=== PATIENT | female | born 1955 | race Caucasian/White ===

== ENCOUNTER 2021-09-05 05:40 | Emergency (ER) | payer MEDICARE, OTHER ==
[~2021-09-05] VITALS: Ht 167.6 cm; Wt 50.8 kg
--- NOTE | 2021-09-05 05:45 | NUR ---
DOM 76 FROM HOME FOR EVALUATION OF S/P ASSISTED FALL DURING SYNCOPAL EPISODE. DENIES ANY TRAUMA OR PAIN.PT ALERT AND ORIENTED PLACED ON MONITOR AND PULSE OX, V/S STABLE BREATHING EVEN AND UNLABORED.
--- NOTE | 2021-09-05 06:32 | NUR ---
PATIENT TAKEN TO CT
[2021-09-05 06:42] LABS: BASOPHILS # (AUTO) 0.1 K/uL (0.0-0.2); BASOPHILS % (AUTO) 0.5 % (0.0-2.0); EOSINOPHILS % (AUTO) 0.2 % (0.0-6.0); HEMATOCRIT 43 % (33-45); HEMOGLOBIN 14.8 g/dL (11.5-14.8); LYMPHOCYTES # (AUTO) 0.6 K/uL (0.8-4.8); LYMPHOCYTES % (AUTO) 5.5 % (20.0-44.0); MEAN CORPUSCULAR HGB CONC 34 g/dl (31.0-36.0); MEAN CORPUSCULAR VOLUME 96 fL (82-100); MONOCYTES # (AUTO) 0.4 K/uL (0.1-1.30); MONOCYTES % (AUTO) 3.2 % (2.0-12.0); NEUTROPHILS % (AUTO) 90.6 % (43.0-81.0); PLATELET COUNT (AUTO) 233 K/uL (150-450); RED BLOOD CELL COUNT(AUTO) 4.53 MIL/uL (4.0-5.2)
[2021-09-05 07:22] LABS: ALANINE AMINOTRANSFERASE 25 U/L (12-78); ALBUMIN 4.1 g/dL (3.4-5.0); ALKALINE PHOSPHATASE 109 U/L (46-116); ASPARTATE AMINOTRANSFERASE 21 U/L (15-37); BILIRUBIN,DIRECT 0.1 mg/dL (0.0-0.2); BILIRUBIN,TOTAL 0.5 mg/dL (0.2-1.0); CALCIUM, SERUM 9.2 mg/dL (8.5-10.1); CARBON DIOXIDE 27 mmol/L (21-32); CHLORIDE 103 mmol/L (98-107); CREATININE 0.8 mg/dL (0.6-1.3); GLUCOSE 139 mg/dL (74-106); POTASSIUM 4.7 mmol/L (3.5-5.1); SODIUM SERUM 139 mmol/L (136-145); TOTAL PROTEIN, SERUM 7.6 g/dL (6.4-8.2); UREA NITROGEN, BLOOD 19 mg/dL (7-18)
--- NOTE | 2021-09-05 08:25 | NUR ---
pt awaiting for transportation
--- NOTE | 2021-09-05 08:25 | NUR ---
IV removed. Catheter intact and site benign. Pressure and 4x4 applied to site. No bleeding noted.
--- NOTE | 2021-09-05 08:25 | NUR ---
Jared banerjee in ED - 09/05/21 at 0945 by JEY Patient discharged to home in stable condition. Written and verbal after care instructions given. Patient verbalizes understanding of instruction.
--- NOTE | 2021-09-05 09:50 | NUR ---
SPOKE TO PT CAREGIVER DANUTA AND STATED AN ETA OF 10 MINS
--- NOTE | 2021-09-05 10:07 | NUR ---
Circulation Representative at bedside. Patient discharged to home in stable condition. Written and verbal after care instructions given. Patient and watch technician verbalized understanding of instruction.
[2021-09-05 10:11] VITALS: BP 124/56
== END 2021-09-05 10:13 | disposition home or self-care (01) ==
LOC: ER 05:41
DX: R55 Syncope and collapse (principal); R56.9 Unspecified convulsions
CPT/HCPCS: 36415; 70450-TC; 71045-TC; 72125-TC; 80048-TC; 80076-TC; 84484-TC; 85025-TC; 85730-TC